=== PATIENT | female | born 1970 | race African-American/Black ===

== ENCOUNTER 2024-04-14 08:26 | Inpatient (IN) | payer MEDICARE, MEDICAID ==
[~2024-04-14] VITALS: Ht 170.2 cm; Wt 93.5 kg
[2024-04-14 09:00] VITALS: PULSE 60; RESP 14; O2SAT 95
[2024-04-14 09:11] LABS: Basophils # (auto) 0 10 ^3/uL (0-0.2); Basophils % (auto) 0.5 % (0.0-2.0); Eosinophils # (auto) 0.1 10 ^3/uL (0-0.8); Eosinophils % (auto) 1.3 % (0.0-7.0); Hematocrit 39.1 % (36.0-46.0); Hemoglobin 12.6 g/dL (12.2-16.2); Lymphocytes % (auto) 37.9 % (10.0-50.0); Mean Corpuscular Hemoglobin 27.6 pg (28.0-32.0); Mean Corpuscular Hgb Conc. 32.3 g/dL (32.0-36.0); Mean Corpuscular Volume 85.3 fL (80.0-100.0); Monocytes # (auto) 0.3 10 ^3/uL (0-1.3); Monocytes % (auto) 6.3 % (0.0-12.0); Neutrophils # (auto) 2.8 10 ^3/uL (1.6-8.6); Nucleated Red Blood Cells % 0.2 %; Red Blood Cells 4.58 10^6/uL (4.0-5.20); Red Cell Distribution Width 14.2 % (11.8-14.3); White Blood Cell 5.2 10^3/uL (4.4-10.8)
[2024-04-14 09:21] LABS: Chloride 106 mmol/L (98-107); Potassium 3.5 mmol/L (3.5-5.1); Sodium 142 mmol/L (136-145)
[2024-04-14 09:22] LABS: Anion Gap 5 (5-15); Carbon Dioxide 31 mmol/L (20-30)
[2024-04-14 09:27] LABS: Blood Urea Nitrogen 8 mg/dL (9-23); Glucose 86 mg/dL (74-106)
[2024-04-14 09:28] LABS: BUN/Creatinine Ratio 8.4 (10.0-20.0)
[2024-04-14] MEDS ORDERED: ONDANSETRON HCL 4 MG/2 ML VIAL IV PRN (11:45)
[2024-04-14] MEDS: SODIUM CHLORIDE 0.9% 1,000 ML IV SCH (11:45)
[2024-04-14] MEDS ORDERED: DOCUSATE SOD 100 MG CAP PO PRN (11:45)
[2024-04-14] MEDS ORDERED: MORPHINE SULFATE INJ 2 MG/ml SYRG IV PRN (11:45)
[2024-04-14] MEDS: IOHEXOL 350 MG/ML 100ML IJ ONE (11:56)
[2024-04-14 12:32] LABS: INR 1.11 (0.9-1.15); Prothrombin Time 11.7 sec (9.3-11.8)
[2024-04-14 13:34] VITALS: PULSE 60; RESP 18; O2SAT 98
[2024-04-14] MEDS: ENOXAPARIN SOD 100 MG/1 ML SYRINGE SC ONE (14:51)
[2024-04-14 16:22] LABS: Urine Bacteria None Seen /hpf (None Seen); Urine WBC None Seen /hpf (0 - 5)
[2024-04-14 16:32] LABS: Urine Blood Negative /uL (Negative); Urine Clarity Clear (Clear); Urine Color Colorless (Yellow); Urine Protein, UAD Negative (Negative); Urine Specific Gravity 1.005 (1.001-1.035); Urine Urobilinogen Normal (Negative); Urine pH 6.5 (5.0-9.0)
[2024-04-14 18:52] VITALS: PULSE 81; RESP 18; O2SAT 100
[2024-04-14 19:02] VITALS: PULSE 88; RESP 18; O2SAT 100
[2024-04-14 19:30] VITALS: PULSE 62; RESP 14; O2SAT 98
[2024-04-14] MEDS: RIVAROXABAN 15 MG TAB PO SCH (22:39)
[2024-04-15] VITALS (14 sets, daily range): BP systolic 100–139; BP diastolic 37–76; PULSE 60–80; RESP 12–19; TEMP 97.5–98.4; O2SAT 94–100
[2024-04-15] MEDS ORDERED: METH-552 PO (02:33)
[2024-04-15] MEDS ORDERED: ACET-1881 PO (02:41)
[2024-04-15 05:48] LABS: Basophils # (auto) 0 10 ^3/uL (0-0.2); Basophils % (auto) 0.7 % (0.0-2.0); Eosinophils # (auto) 0.1 10 ^3/uL (0-0.8); Eosinophils % (auto) 1.4 % (0.0-7.0); Hematocrit 37.5 % (36.0-46.0); Hemoglobin 12.1 g/dL (12.2-16.2); Lymphocytes # (auto) 2.2 10 ^3/uL (0.4-5.4); Lymphocytes % (auto) 45.1 % (10.0-50.0); Mean Corpuscular Hemoglobin 27.7 pg (28.0-32.0); Mean Corpuscular Hgb Conc. 32.4 g/dL (32.0-36.0); Mean Corpuscular Volume 85.3 fL (80.0-100.0); Monocytes # (auto) 0.3 10 ^3/uL (0-1.3); Monocytes % (auto) 5.8 % (0.0-12.0); Neutrophils # (auto) 2.3 10 ^3/uL (1.6-8.6); Nucleated Red Blood Cells % 0.1 %; Red Blood Cells 4.39 10^6/uL (4.0-5.20); Red Cell Distribution Width 14.2 % (11.8-14.3); White Blood Cell 4.8 10^3/uL (4.4-10.8)
[2024-04-15 06:05] LABS: Alanine Aminotransferase 10 U/L (7-40); Albumin 3.6 g/dL (3.2-4.8); Alkaline Phosphatase 74 U/L (46-116); Anion Gap 4 (5-15); Aspartate Aminotransferase 9 U/L (13-40); BUN/Creatinine Ratio 9.3 (10.0-20.0); Blood Urea Nitrogen 7 mg/dL (9-23); Calcium 9.1 mg/dL (8.7-10.4); Carbon Dioxide 28 mmol/L (20-30); Chloride 110 mmol/L (98-107); Glucose 90 mg/dL (74-106); Potassium 3.2 mmol/L (3.5-5.1); Sodium 142 mmol/L (136-145)
[2024-04-15 06:06] LABS: Total Protein 6.7 g/dL (5.7-8.2)
[2024-04-15] MEDS: ALBUTEROL SULF 2.5 MG/0.5ML(0.5%) NEB SOLN NEB PRN (14:03)
[2024-04-15] MEDS: IPRATROPIUM BROM 0.5 MG/2.5ML INH SOL NEB PRN (14:03)
[2024-04-15] MEDS ORDERED: MORPHINE SULFATE 4 MG/ML SYR/VIAL IV PRN (21:45)
[2024-04-16] VITALS (16 sets, daily range): BP systolic 98–127; BP diastolic 51–79; PULSE 59–80; RESP 14–19; TEMP 97.5–98.8; O2SAT 96–100
[2024-04-16 12:16] LABS: Basophils # (auto) 0 10 ^3/uL (0-0.2); Basophils % (auto) 0.6 % (0.0-2.0); Eosinophils # (auto) 0.1 10 ^3/uL (0-0.8); Eosinophils % (auto) 0.9 % (0.0-7.0); Hematocrit 39.1 % (36.0-46.0); Hemoglobin 12.4 g/dL (12.2-16.2); Lymphocytes # (auto) 2.4 10 ^3/uL (0.4-5.4); Lymphocytes % (auto) 40.4 % (10.0-50.0); Mean Corpuscular Hemoglobin 27.2 pg (28.0-32.0); Mean Corpuscular Hgb Conc. 31.7 g/dL (32.0-36.0); Monocytes # (auto) 0.3 10 ^3/uL (0-1.3); Monocytes % (auto) 5.4 % (0.0-12.0); Neutrophils # (auto) 3.1 10 ^3/uL (1.6-8.6); Neutrophils % (auto) 52.7 % (37.0-80.0); Nucleated Red Blood Cells % 0.1 %; Red Blood Cells 4.54 10^6/uL (4.0-5.20); Red Cell Distribution Width 14.2 % (11.8-14.3); White Blood Cell 5.9 10^3/uL (4.4-10.8)
[2024-04-16 12:24] LABS: Chloride 111 mmol/L (98-107); Potassium 3.7 mmol/L (3.5-5.1); Sodium 141 mmol/L (136-145)
[2024-04-16 12:25] LABS: Anion Gap 4 (5-15); Calcium 9.3 mg/dL (8.7-10.4); Carbon Dioxide 26 mmol/L (20-30)
[2024-04-16 12:30] LABS: BUN/Creatinine Ratio 6.1 (10.0-20.0); Blood Urea Nitrogen 5 mg/dL (9-23); Glucose 92 mg/dL (74-106)
[2024-04-16 12:31] LABS: Magnesium 1.7 mg/dL (1.6-2.6)
[2024-04-17] VITALS (8 sets, daily range): BP systolic 106–118; BP diastolic 52–79; PULSE 59–78; RESP 16–20; TEMP 36.4; O2SAT 95–100
[2024-04-17] MEDS ORDERED: METO25TA5 PO (11:24)
[2024-04-17] MEDS ORDERED: ALBUAER3 IN (11:24)
[2024-04-17] MEDS ORDERED: RIV20T PO (11:24)
== END 2024-04-17 15:30 | disposition home or self-care (01) | DRG 175 ==
LOC: EDBD 08:26 → ER 08:26 → OVERFLOW 11:46 → TELE-EAST 23:28
PROVIDERS: ADMIT Nurse Practitioner Family; ATTEND Internal Medicine
PROC: 4B02XSZ Measurement of Cardiac Pacemaker, External Approach (ICD-10-PCS; principal; 2024-04-15)
DX: I26.09 Other pulmonary embolism with acute cor pulmonale (principal); J98.11 Atelectasis; D86.9 Sarcoidosis, unspecified; D57.3 Sickle-cell trait; E05.90 Thyrotoxicosis, unspecified without thyrotoxic crisis or storm; E66.9 Obesity, unspecified; J45.909 Unspecified asthma, uncomplicated; Z95.0 Presence of cardiac pacemaker; Z88.0 Allergy status to penicillin; Z88.6 Allergy status to analgesic agent; Z88.1 Allergy status to other antibiotic agents; Z88.2 Allergy status to sulfonamides; Z90.49 Acquired absence of other specified parts of digestive tract; Z86.711 Personal history of pulmonary embolism; Z79.01 Long term (current) use of anticoagulants; Z68.34 Body mass index [BMI] 34.0-34.9, adult
CPT/HCPCS: 36415; 70450; 71045; 80048; 80053; 81001; 81025; 83735; 83880; 84443; 84484; 85025; 85379; 85610; 87081; 93005; 93306; 94640; 96372; 99291; G0378